=== PATIENT | female | born 1955 | race Caucasian/White ===

== ENCOUNTER 2025-06-16 00:30 | Emergency (ER) | payer OTHER, MEDICARE | END 2025-06-16 01:45 | disposition home or self-care (01) | LOC: DL.ED 00:30 | DX: S52.022A Displaced fracture of olecranon process without intraarticular extension of left ulna, initial encounter for closed fracture (principal); W19.XXXA Unspecified fall, initial encounter; Y92.096 Garden or yard of other non-institutional residence as the place of occurrence of the external cause | CPT/HCPCS: 29105; 73080-LT; 99283-25 ==